=== PATIENT | male | born 1980 | race African-American/Black ===

== ENCOUNTER 2016-04-15 17:44 | Inpatient (IN) ==
[2016-04-15] MEDS ORDERED: ceFAZolin 2,000 MG in D5% in Water 100 ML IVPB ONE (18:15)
[2016-04-15] MEDS ORDERED: Ringers Solution, Lactated 1,000 ML IVC SCH (18:30)
--- NOTE | 2016-04-15 18:33 | Vascular/Endovascular H&P ---
Date of Encounter: 04/15/16 Time of Encounter: 15:00 Assessment and Plan (1) Peripheral vascular occlusive disease Current Visit: No Status: Acute Severe right lower extremity ischemia with ankle brachial index of 0. Unknown whether this represents an embolus or congenital absence of a role popliteal system. Due to the patient's severe ischemia I recommended the patient undergo emergency surgery tonight for thrombectomy/embolectomy of the right lower extremity femoral popliteal system. If the patient has a congenital absence of these vessels further evaluation will be necessary and he may then require a distal bypass. Long-term prognosis in this situation is poor and may require amputation if this is truly the anatomic situation. History of Present Illness Chief complaint: Right leg pain HPI: Mr. Ashley is a 35 year old male Admitted via the vascular surgery clinic following a stat echocardiogram. This patient has a two-week history of progressive and severe right lower extremity pain. He was seen in the emergency room on April 03 where noninvasive testing revealed an ankle-brachial index of 0 on the right and normal on the left. Venous duplex scan was negative for DVT. 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 The patient missed an appointment on April 08 in the vascular surgery clinic. He re-presented to the emergency room on April 09. He now presents to the vascular surgery clinic today. Because of his severe ischemia the patient was recommended to undergo a stat echocardiogram because the CT angiogram demonstrated no findings of abdominal aortic aneurysm or dissection. There appeared to be no findings of underlying vascular occlusive disease. In light of his very young age and his risk factors only of tobacco abuse embolization was suspected and so therefore stat echocardiogram was ordered. The pulmonary read at this time is negative and the official reading will be available later this evening. Because of his severe ischemia the patient will be taken to the operating room tonight as an emergency. Past Med Surg Social Fam HX - Past Medical History Medical history: DVT Psychiatric history: no psych history - Social History Smoking Status: Current every day smoker Smokeless Tobacco Status: No Alcohol use: occasionally Drug use: marijuana Medications and Allergies Famotidine [Pepcid] 20 mg PO BID #14 tablet 09/06/15 [Rx] Ondansetron ODT [Zofran ODT] 4 mg SL Q4HR PRN #20 tab.rapdis 09/06/15 [Rx] Cyclobenzaprine [Flexeril] 10 mg PO TID PRN #15 tablet 10/15/15 [Rx] Ibuprofen [Motrin] 600 mg PO Q8HR PRN #20 tab 10/15/15 [Rx] Amoxicillin [Amoxil] 1,000 mg PO Q8HR #60 capsule 11/06/15 [Rx] Loratadine [Claritin] 10 mg PO DAILY #20 tablet 11/06/15 [Rx] HYDROcodone/Acet 5/325 mg [[place] 5-325 mg] 1 tab PO Q6HR PRN #15 tablet [Rx] Allergies No Known Allergies Allergy (Verified 03/25/16 09:56) All Systems Review: A 10-system review of systems was performed and is negative for pertinent findings except as documented above in the HPI. Exam Vital Signs, Last 4 Hours Temp Pulse Resp BP Pulse Ox 04/15/16 18:05 97.7 F 91 16 137/106 96 General: Present: Conversant, Well developed, Well nourished HEENT: Present: Atraumatic, Normocephaly, Trachea midline, Pupils equal Neck: Present: Lymphadenopathy. Absent: JVD, Left Carotid bruit, Right Carotid bruit, Midline deformity, Tracheal deviation, Thyromegaly Cardiac: Present: Reg Rate and Rhythm, Normal S1 and S2, No Murmur. Absent: Irregular Rhythm Lungs: Present: Normal Breath Sounds, No Wheeze, Rales, Rhonchi Neuro: Present: Alert and responsive, No focal deficits noted, Cranial nerves grossly intact Abdomen: Present: Soft, Non-tender. Absent: Hepatosplenomegaly, Masses Vascular: Present: Capillary refill delayed (Capillary filling delayed on the right), Pulse, absent (No right popliteal or pedal pulse), Pulse, normal ( Normal pulses on the left lower extremity) Skin: Present: No rashes noted on visualized skin Musculoskeletal: Present: No Chest Wall Tenderness Results - Imaging / Other Tests Echo: pending Non Invasive Vascular Testing: report reviewed, image reviewed CT/CTA: report reviewed, image reviewed
[2016-04-15 18:45] LABS: Basophils % 0.8 %; Eosinophils # 0.2 K/mcL (0.0-0.6); Eosinophils % 4.8 %; Hematocrit 38.2 % (37.5-50.1); Hemoglobin 12.8 g/dL (12.9-16.9); Immature Granulocytes % 0.3 % (0-4); Lymphocytes # 1.5 K/mcL (0.6-4.6); Lymphocytes % 36.5 %; Mean Corpuscular HGB Conc 33.5 g/dL (31.6-35.5); Mean Corpuscular Hemoglobin 30.6 pg (28.0-33.3); Mean Corpuscular Volume 91.4 fL (83.0-100.0); Mean Platelet Volume 8.6 fL (9.4-12.4); Monocytes # 0.4 K/mcL (0.0-1.3); Monocytes % 8.8 %; Platelet Count 331 K/mcL (140-400); Red Blood Count 4.18 M/mcL (4.19-5.50); Segmented Neutrophils % 48.8 %
[2016-04-15 18:55] LABS: Prothrombin Time 11.1 Seconds (9.4-12.1)
[2016-04-15 18:57] LABS: Activated Partial Thrombo Time 27.3 Seconds (26.0-36.0); BUN/Creatinine Ratio 6 (6-26); Blood Urea Nitrogen 5 mg/dL (8-26); Calcium 9.4 mg/dL (8.6-10.8); Carbon Dioxide 24 mEq/L (19-29); Chloride 105 mEq/L (98-109); Glucose 81 mg/dL (70-99); Osmolality,Calculated 280 (280-300); Potassium 4.3 mEq/L (3.5-4.5); Sodium 137 mEq/L (136-145); eGFR For African Americans > 60 (> 60); eGFR For Non-African Americans > 60 (> 60)
--- NOTE | 2016-04-15 19:19 | Anesthesia Evaluation PreOp ---
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 HX Other Medical History: Other (right lower extremity DVT) Anesthesia History: Past Anesthesia (no prior surgery) Alcohol Use: occasionally Drug use: marijuana Medications and Allergies Famotidine [Pepcid] 20 mg PO BID #14 tablet 09/06/15 [Rx] Ondansetron ODT [Zofran ODT] 4 mg SL Q4HR PRN #20 tab.rapdis 09/06/15 [Rx] Cyclobenzaprine [Flexeril] 10 mg PO TID PRN #15 tablet 10/15/15 [Rx] Ibuprofen [Motrin] 600 mg PO Q8HR PRN #20 tab 10/15/15 [Rx] Amoxicillin [Amoxil] 1,000 mg PO Q8HR #60 capsule 11/06/15 [Rx] Loratadine [Claritin] 10 mg PO DAILY #20 tablet 11/06/15 [Rx] HYDROcodone/Acet 5/325 mg [[place] 5-325 mg] 1 tab PO Q6HR PRN #15 tablet [Rx] Allergies No Known Allergies Allergy (Verified 03/25/16 09:56) - Meds/Allergy Pre-op Review Medications Reviewed: Yes Allergies Reviewed: Yes Beta Blockers on Current Med List: No Anesthesia Results - Labs 04/15/16 18:35 04/15/16 18:35 Laboratory Tests 04/15/16 18:35 PT 11.1 INR 1.0 APTT 27.3 Anesthesia Exam Vital Signs/O2 Sat, Most Current Temp Pulse Resp BP Pulse Ox 97.7 F 91 16 137/106 96 04/15/16 18:05 04/15/16 18:05 04/15/16 18:05 04/15/16 18:05 04/15/16 18:05 Height: 5'9''/1.75 m Weight: 226 lbs/102.6 kg NPO (# of Hours): 8 Pain Scale: 10 (right lower extremity) Pain Scale Used: Numeric (1 - 10) - HEENT Pupil (Motor): EOMI Mallampati: II Teeth: Normal (chipped upper right molar) Oral Opening: Greater than 3 - PLASMA PROCESSING TECHNICIAN LOC: Oriented PLASMA PROCESSING TECHNICIAN Motor: Normal RUE, Normal LUE, Normal RLE, Normal LLE, Normal Face PLASMA PROCESSING TECHNICIAN Sensory: Normal: RUE, LUE, LLE, Face, Deficit: RLE - Cardiac Rhythm: Regular Murmur: None - Pulmonary Breath Sounds: bilateral Clear Respiratory Effort: Symmetrical Anesthesia Assess/Plan ASA Score: 2 Modified Kramer Scale for Level of Consciousness: Cooperative, oriented, and tranquil Anesthetic Plan: General Monitoring Plan: Standard Monitors Recovery Plan: PACU
[2016-04-15] MEDS ORDERED: *HR* Midazolam HCl 2 MG/2 ML VIAL ONE (19:38)
[2016-04-15] MEDS ORDERED: *HR* Propofol 200 MG/20 ML VIAL IVP ONE (19:38)
[2016-04-15] MEDS ORDERED: *HR* FentaNYL (PF) 100 MCG/2 ML VIAL ONE ×2 (19:38→21:12)
[2016-04-15] MEDS ORDERED: *HR* Rocuronium Bromide 50 MG/5 ML VIAL ONE (19:39)
[2016-04-15] MEDS ORDERED: Lidocaine -MPF 2% 2 ML VIAL ONE (19:39)
[2016-04-15 19:42] LABS: Bilirubin,Urine Negative (Negative); Blood,Urine Negative (Negative); Clarity,Urine Clear (Clear); Color,Urine Yellow (Yellow); Glucose,Urine (UA) Normal (Normal); Ketones,Urine Negative (Negative); Leukocyte Esterase,Urine Negative (Negative); Nitrite,Urine Negative (Negative); Protein,Urine Negative (Neg-Trace); Specific Gravity,Urine 1.008 (1.010-1.025); Urobilinogen,Urine Normal (Normal)
[2016-04-15] MEDS ORDERED: Water for inj. (sterile) 10 ML IV ONE (19:55)
[2016-04-15] MEDS ORDERED: Heparin 1,000 UNITS/500 mL NS 500 ML ONE (19:55)
[2016-04-15] MEDS ORDERED: *HR* Heparin 5,000 UNIT/ML VIAL ONE (21:07)
[2016-04-15] MEDS ORDERED: Dexamethasone 4 MG/ML VIAL ONE (21:08)
[2016-04-15] MEDS ORDERED: Ondansetron 4 MG/2 ML VIAL ONE (21:08)
[2016-04-15] MEDS ORDERED: *HR* Morphine 10 MG/ML VIAL ONE (22:37)
--- NOTE | 2016-04-15 23:25 | Operative Note ---
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 Biopsy of right below- knee Condition: stable Disposition: PACU Procedure in Detail: History Gomez Ashley is a 35-year-old -Mexican male who is seen this afternoon in my clinic with severe right lower extremity pain. The patient was in the emergency room on April 03 and had a workup that included noninvasive testing which showed an ankle-brachial index of [address] angiogram which showed occlusion of the superficial femoral and popliteal and proximal tibial systems. The patient reappeared in the emergency room 6 days later and then was seen in my office today. The patient was complaining of severe pain. No palpable popliteal or pedal pulses or Doppler signals at the ankle. The CT angiogram demonstrated a normal appearing aorta and normal vessels on the left lower extremity. Therefore an embolus was suspected though the patient had no clearcut etiology for this. An emergency echocardiogram was performed which was negative. Because of the severe pain the patient was then taken to the operating room this evening as an emergency in an attempt to try to salvage the right lower extremity. Procedure After informed consent was obtained the patient was taken to the operating room. General endotracheal anesthesia was established. The right lower extremity was sterilely prepped and draped. A timeout protocol was observed. An incision was made in the right groin to dissect and expose the femoral artery bifurcation. This was patent on the CT angiogram. Dissection here revealed normal diameter vessels though there was marked inflammation surrounding all the vessels in the periadventitial material. The common femoral and profunda femoris artery were pulsatile. Only the very proximal aspect of the superficial femoral artery was pulsatile. The vessel appeared to continue distally had increasing areas of marked inflammation. Therefore control was obtained of the vessels. Heparin was given a dose of 5000 units. The superficial femoral artery was clamped immediately after its takeoff and the profunda femoris and common femoral artery were left open during the ensuing manipulation. A transverse arteriotomy was made over the proximal aspect of the superficial femoral artery approximately 3 cm from its takeoff. Acute thrombus was identified upon opening the vessel and there was marked inflammation in the periadventitial area. A thrombectomy was then performed using pickups and a right angle and a 3 Turkmen and 4 Turkmen Linda catheter. Passing the catheter distally the catheters would only pass to a distance of approximate [address] the tip of the catheter near the abductor canal. Thrombus was removed and some of the thrombus appeared more chronic and somewhat subacute. The clotting process appear to be a very chronic and ongoing process for this patient. As the catheter could not be passed more distally it was elected to try to pass a catheter retrograde. Therefore a second incision was made in the [id number]-[id number] popliteal area. Dissection was made to expose and control the gyehp-yqq-yrae popliteal artery with the idea of passing a catheter both proximally and distally. Again marked and dense inflammation was encountered around the vascular system. The below-the -knee popliteal artery was very small in size. After this vessel was controlled a transverse arteriotomy was made. There was no thrombus here but rather a very dense thick and white material occupied the entire lumen of the vessel. No lumen could be identified or reestablished both proximally or distally. Therefore his judgment the patient did not have a reconstructable lesion. And because of the marked inflammation and a section of the artery was taken and submitted as specimen to rule out vasculitis. The artery was ligated proximally and distally though there was no signs of backbleeding. The [id number] popliteal artery was irrigated and hemostasis achieved. The incision was then closed in layers using absorbable suture. Attention was then redirected to the groin. The transverse incision on the superficial femoral artery was closed using a running 6-0 Prolene suture. The clamps were then removed and pulsatile flow was restored into the superficial femoral artery below this appeared to be a vessel with minimal runoff. It should be noted that after the thrombectomy retrograde bleeding was established from the distal superficial femoral artery. Again this incision was irrigated with antibiotic containing solution and closed in layers using absorbable suture. There were no intraoperative complications. The patient tolerated the procedure well. The estimated blood loss is 100 mL. The specimens included both the thrombus and the portion of the [id number] popliteal artery. The overall prognosis is very poor for this patient due to the extensive thrombosis and sclerosis of the vessels.
[2016-04-15] MEDS: *HR* HYDROmorphone (PF) 1 MG/ML SYRINGE IVP PRN ×3 (23:33→23:58)
[2016-04-16] MEDS: *HR* Labetalol 20 MG/4 ML SYRINGE IVP PRN ×3 (00:04→00:30)
[2016-04-16] MEDS: *HR* HYDROmorphone (PF) 1 MG/ML SYRINGE IVP PRN (00:11)
[2016-04-16] MEDS ORDERED: Naloxone 0.4 MG/ML INJ IVP PRN (00:43)
[2016-04-16] MEDS ORDERED: Ondansetron 4 MG/2 ML VIAL IVP PRN (00:43)
[2016-04-16] MEDS ORDERED: Heparin 25,000 UNIT/500 ML D5W 25,000 UNIT/500 ML MLS IVC SCH (00:43)
[2016-04-16] MEDS ORDERED: *HR* Heparin 5,000 UNIT/ML VIAL IVP PRN ×2 (00:43)
[2016-04-16] MEDS ORDERED: Acetaminophen 325 MG TABLET PO PRN (00:43)
[2016-04-16] MEDS ORDERED: *HR* Heparin 5,000 UNIT/ML VIAL IVP ONE (00:43)
[2016-04-16] MEDS: *HR* HYDROcodone/Acet 5/325 mg TABLET PO PRN ×2 (05:05→11:22)
[2016-04-16] MEDS: ceFAZolin 2,000 MG in D5% in Water 100 ML IVPB SCH ×2 (05:27→08:49)
[2016-04-16] MEDS: *HR* Morphine 2 MG/ML SYRINGE IVP PRN ×4 (05:57→14:27)
[2016-04-16 06:12] LABS: Basophils % 0.4 %; Hematocrit 37.3 % (37.5-50.1); Hemoglobin 12.3 g/dL (12.9-16.9); Immature Granulocytes % 0.7 % (0-4); Immature Platelets 2.7 % (1.1-6.1); Lymphocytes # 0.8 K/mcL (0.6-4.6); Lymphocytes % 12.1 %; Mean Corpuscular Hemoglobin 30.4 pg (28.0-33.3); Mean Corpuscular Volume 92.3 fL (83.0-100.0); Mean Platelet Volume 9.4 fL (9.4-12.4); Monocytes # 0.2 K/mcL (0.0-1.3); Monocytes % 3.1 %; Neutrophils # 5.6 K/mcL (1.6-8.9); Platelet Count 358 K/mcL (140-400); Red Blood Count 4.04 M/mcL (4.19-5.50); Red Cell Distribution Width 13.3 % (11.5-14.5); Segmented Neutrophils % 83.7 %
[2016-04-16 06:26] LABS: BUN/Creatinine Ratio 6 (6-26); Calcium 9.4 mg/dL (8.6-10.8); Carbon Dioxide 25 mEq/L (19-29); Chloride 105 mEq/L (98-109); Glucose 112 mg/dL (70-99); Osmolality,Calculated 286 (280-300); Potassium 4.4 mEq/L (3.5-4.5); Sodium 139 mEq/L (136-145); eGFR For African Americans > 60 (> 60); eGFR For Non-African Americans > 60 (> 60)
[2016-04-16 06:27] LABS: Blood Urea Nitrogen 5 mg/dL (8-26)
[2016-04-16 07:10] LABS: INR 1.1; Prothrombin Time 11.8 Seconds (9.4-12.1)
[2016-04-16 07:13] LABS: Activated Partial Thrombo Time 38.8 Seconds (26.0-36.0)
--- NOTE | 2016-04-16 10:17 | Vascular/Endovas Progress Note ---
Date of Encounter: 04/16/16 Time of Encounter: 10:15 - Assessment and plan (1) Peripheral vascular occlusive disease Current Visit: No Status: Acute Severe and persistent ischemia of right lower extremity due to chronic superficial femoral, popliteal, and tibial artery occlusive process. The exact etiology of this process remains unclear at this time. The echocardiogram was negative for cardiac source and the CT angiogram demonstrated no aortoiliac pathology. Marked inflammation was encountered surrounding the vessels both at the femoral level and at the [id number] popliteal artery exploration level. The popliteal artery was obliterated and a small vessel. No lumen could be reestablished and so therefore no reconstruction could be achieved at this level. Because of the marked inflammation the patient had a biopsy taken of the popliteal artery and submitted for evaluation for potential vasculitis or other occult vascular pathology. At present time the patient is receiving heparin anticoagulation. A conversion to Xarleto is under evaluation. Due to the severity of his ischemia and vascular occlusive disease I have no further vascular reconstructions to offer him here at [facility]. We discussed referral to a tertiary care center for further evaluation and potential distal reconstruction. The patient wishes to pursue this option and I will ask my office staff to make the necessary arrangements if possible in the meantime we' ll continue anticoagulation therapy and we'll request physical therapy consultation. - Subjective Interval history: The patient is now postoperative day #1 following an emergency thrombectomy and popliteal exploration last night. The patient was found to have both acute and chronic thrombus in the superficial femoral artery. Exploration of the popliteal artery revealed an obliterated structure with no lumen and no option for reconstruction at the popliteal level. The patient continues to have a burning pain on the pretibial region of the distal right calf. Vital Signs, Last 4 Hours Temp Pulse Resp BP Pulse Ox 04/16/16 08:45 108 97 04/16/16 07:40 97.9 F 93 16 155/104 94 L - Physical Examination General: Present: Conversant, No Apparent Distress Cardiac: Present: Reg Rate and Rhythm Lungs: Present: Normal Breath Sounds Neuro: Present: Alert and responsive Vascular: Present: Pulse, absent, Other (The patient has no palpable popliteal or ankle pulses on the right. This was a same status as was present prior to surgery. No Doppler signals can be identified at the right ankle as well. His overall vascular status does not appear to be improved after the superficial femoral artery thrombectomy and this would be expected as he has popliteal artery obliteration.) - VTE Documentation of Mechanical Device: Intermittent pneumatic compression device Results 04/16/16 04:15 04/16/16 04:15 Lab Results, Last 24 hours 04/15/16 04/15/16 04/15/16 18:35 18:35 18:35 WBC 4.0 L Hgb 12.8 L Hct 38.2 Plt Count 331 INR 1.0 APTT 27.3 Sodium 137 Potassium 4.3 Chloride 105 Carbon Dioxide 24 BUN 5 L Creatinine 0.87 Glucose 81 Calcium 9.4 04/16/16 04/16/16 04/16/16 04:15 04:15 06:53 WBC 6.7 D Hgb 12.3 L Hct 37.3 L Plt Count 358 INR 1.1 APTT 38.8 H Sodium 139 Potassium 4.4 Chloride 105 Carbon Dioxide 25 BUN 5 L Creatinine 0.82 Glucose 112 H Calcium 9.4 Consult Discharge Plan - Plan Referrals: Remy Muñoz [Non-Partnered Physician] - 04/27/16 5:00 pm (Please show up 30 minutes early to fill out paper work. Please take all medications in the bottles with you to your appointment. Take your ins. card with you to your appointment. if you are unable to make the appointment please call within 24 hours of your appointment to cancel. ) NO,PCP [Primary Care Provider] - Chilo Varghese MD [Partnered Physician] - 05/06/16 9:45 am
[2016-04-16 11:35] VITALS: BP 155/104
--- NOTE | 2016-04-16 12:04 | Event Note ---
Date of Encounter: 04/16/16 Time of Encounter: 12:02 As the patient has not had any clinical improvement following the emergency thrombectomy last night I discussed with him the potential treatments available to him. I have contacted Dr. Goncalves at [facility] vascular surgery division and discussed the situation with him. He has graciously accepted the patient in transfer for further evaluation. The patient is agreeable to this. We will attempt to make arrangements for the transfer to [facility] today. The patient will continue on intravenous heparin.
== END 2016-04-16 15:10 | disposition critical access hospital (66) | DRG 181 ==
LOC: 2NENU → 2NNU 22:42
PROVIDERS: ADMIT Surgery Vascular Surgery; ATTEND Surgery Vascular Surgery